=== PATIENT | male | born 1955 | race Caucasian/White ===

== ENCOUNTER 2019-09-13 12:27 | Emergency (ER) | payer MEDICARE, OTHER ==
[2019-09-13] MEDS ORDERED: Lidocaine 1% 30 ML SDV INJECT ONE (12:32)
[2019-09-13] MEDS ORDERED: Bacitracin Oint 1 GM U/D Packet TOP ONE (12:32)
--- NOTE | 2019-09-13 12:36 | EDM.PDOC ---
ED HPI GENERAL MEDICAL PROBLEM - General Chief Complaint: Upper Extremity Injury/Pain Stated Complaint: FISH HOOK IN RIGHT RING FINGER Time Seen by Provider: 09/13/19 12:32 Source of Information: Reports: Patient, RN, RN Notes Reviewed History Limitations: Reports: No Limitations - History of Present Illness INITIAL COMMENTS - FREE TEXT/NARRATIVE: Pt presents to ER with c/o fish hook stuck in right ring finger. Denies any other injury. Last Tetanus vaccine <2 years ago. Onset: Today, Sudden Duration: Constant Quality: Reports: Ache Severity: Mild Improves with: Reports: None Worsens with: Reports: None Associated Symptoms: Reports: No Other Symptoms Right Finger-Ring Pain Score (Numeric/FACES): 6 - Related Data Allergies Allergy/AdvReac Type Severity Reaction Status Date / Time No Known Allergies Allergy Verified 09/13/19 12:40 Home Meds: Home Meds Esomeprazole Magnesium [Nexium] 20 mg PO ASDIRECTED 09/13/19 [History] Fluticasone Propionate [Flonase] 1 spray NASBOTH ASDIRECTED 09/13/19 [History] Meloxicam 15 mg PO ASDIRECTED 09/13/19 [History] Sertraline [Zoloft] 50 mg PO DAILY 09/13/19 [History] Zolpidem [Ambien] 5 mg PO BEDTIME 09/13/19 [History] atorvaSTATin Calcium [Lipitor] 20 mg PO ASDIRECTED 09/13/19 [History] Social & Family History - Family History Family Medical History: Noncontributory Review of Systems - Review of Systems Review Of Systems: Comprehensive ROS is negative, except as noted in HPI. ED EXAM, GENERAL - Physical Exam Exam: See Below Exam Limited By: No Limitations General Appearance: Alert, WD/WN, No Apparent Distress Respiratory/Chest: No Respiratory Distress Cardiovascular: Normal Peripheral Pulses Extremities: Other (Fish hook in Rt 4th finger, no signs of infection.) Neurological: Alert, Oriented, No Motor/Sensory Deficits ED TRAUMA EXTREMITY PROCEDURES - Additional/Other Procedure(s) Other (Free Text) Procedure(s): Fish hook removal Rt 4th finger. Area cleaned and prepped by RN with hibiclens and sterile water. Area of fish hook locally blocked with lidocaine 1% 5cc. Using clean tech. the eye of the hook and lure were cut free and removed with side cutter. The hook shank grasped with needle nosed plier and advanced until the hook and kaylee were exposed through the skin and removed with side cutter. The remaining hook backed out the entry wound. No residual foreign body. Wound was cleansed, and dried, bacitracin ointment applied, and dressing by RN. No complications. Course - Vital Signs Last Recorded V/S: Last Vital Signs Temp 97.6 F 09/13/19 12:36 Pulse 60 09/13/19 12:36 Resp 14 09/13/19 12:36 BP 142/67 H 09/13/19 12:36 Pulse Ox 99 09/13/19 12:36 - Orders/Labs/Meds Meds: Medications Discontinued Medications Generic Name Dose Route Start Last Admin Trade Name Gloria PRN Reason Stop Dose Admin Bacitracin 1 dose 09/13/19 12:32 Bacitracin Oint 1 Gm TOP 09/13/19 12:33 ONETIME ONE Lidocaine HCl 30 ml 09/13/19 12:32 Xylocaine-Mpf 1% INJECT 09/13/19 12:33 ONETIME ONE Departure - Departure Time of Disposition: 12:50 Disposition: Home, Self-Care 01 Condition: Good Clinical Impression: Fish hook injury of finger of right hand Qualifiers: Encounter type: initial encounter Qualified Code(s): S69.91XA - Unspecified injury of right wrist, hand and finger(s), initial encounter - Discharge Information *PRESCRIPTION DRUG MONITORING PROGRAM REVIEWED*: No *COPY OF PRESCRIPTION DRUG MONITORING REPORT IN PATIENT EVERARDO: No Instructions: Puncture Wound, [id number] Forms: ED Department Discharge Additional Instructions: Follow up in clinic or return to ER if any signs of infection develop. Sepsis Event Note - Focused Exam Vital Signs: Vital Signs Temp Pulse Resp BP Pulse Ox 09/13/19 12:36 97.6 F 60 14 142/67 H 99 Date Exam was Performed: 09/13/19 Time Exam was Performed: 12:53
== END 2019-09-13 13:13 | disposition home or self-care (01) ==
LOC: DL.ED 12:27
DX: S60.454A Superficial foreign body of right ring finger, initial encounter (principal); Z79.899 Other long term (current) drug therapy; W45.8XXA Other foreign body or object entering through skin, initial encounter
CPT/HCPCS: 64450; 99282; 99283; J2001